=== PATIENT | female | born 1950 | race Caucasian/White ===

== ENCOUNTER 2019-10-25 12:50 | Emergency (ER) | payer MEDICARE, OTHER ==
[~2019-10-25] VITALS: Ht 165.1 cm; Wt 68.0 kg
--- NOTE | 2019-10-25 14:32 | NUR ---
For discharge- Patient discharged to home in stable condition. Written and verbal after care instructions given. Patient verbalizes understanding of instruction. Home w/sister
[2019-10-25 14:36] VITALS: BP 160/80
== END 2019-10-25 14:37 | disposition home or self-care (01) ==
LOC: ER 12:58
DX: M48.00 Spinal stenosis, site unspecified (principal); R10.2 Pelvic and perineal pain; G35 Multiple sclerosis; Z88.2 Allergy status to sulfonamides
CPT/HCPCS: 72192-TC